=== PATIENT | male | born 1970 | race Two or more races ===

== ENCOUNTER 2023-10-13 10:21 | Emergency (ER) | payer BC, OTHER ==
[~2023-10-13] VITALS: Ht 162.6 cm; Wt 66.5 kg
[2023-10-13 11:18] LABS: Urine Bacteria NONE SEEN /hpf (None Seen); Urine Blood 1+ /uL (Negative); Urine Clarity Clear (Clear); Urine Color Colorless (Yellow); Urine Protein, UAD Negative (Negative); Urine Specific Gravity 1.006 (1.001-1.035); Urine Urobilinogen Normal (Negative); Urine WBC 1 /hpf (0 - 3); Urine pH 5.5 (5.0-8.0)
[2023-10-13] MEDS ORDERED: cefTRIAXone SOD 500 MG VL IM ONE (13:15)
[2023-10-13] MEDS ORDERED: DOXY1CAP57 PO (13:35)
[2023-10-13] MEDS ORDERED: LIDOCAINE 1% HCL (LOCAL ANESTH.) INJ 20ML MDV ONE (13:38)
[2023-10-13 15:36] VITALS: BP 125/83; PULSE 77; RESP 16; TEMP 98.2; O2SAT 98
== END 2023-10-13 15:36 | disposition home or self-care (01) ==
LOC: ER 10:21
DX: N45.1 Epididymitis (principal); Z79.899 Other long term (current) drug therapy
CPT/HCPCS: 76870; 81001; 96372; 99285; J0696; J2001